=== PATIENT | female | born 1945 | race Caucasian/White ===

== ENCOUNTER 2016-10-22 13:22 | Outpatient (CLI) | payer OTHER, BC ==
[~2016-10-22 13:22] MED LIST: ACETAMINOPHEN325 MG PO; ASPIRIN ADULT L81 M1 PO; CYMBALTA60 MG PO; GLIPIZIDE XL5 M1 PO; LISINOPRIL10 MG PO; LOVASTATIN20 MG PO; METHYLPHENIDATE20 M5 PO; MIRAPEX0.25 MG PO; OMEPRAZOLE20 M1 PO; RITALIN20 MG PO
--- NOTE | 2016-10-22 15:16 | DIAGNOSTIC IMAGING REPORT ---
PROCEDURE: US COMPLETE PELVIC W/TRANSVAG INDICATION: PELVIC PAIN TECHNIQUE: Transabdominal and endovaginal whitley scale and color Doppler sonographic images of the female pelvis were obtained. COMPARISON: None. FINDINGS: TRANSABDOMINAL SCANS: The uterus is surgically absent Kidneys are normal. TRANSVAGINAL SCANS: Uterus and ovaries are surgically absent. No mass, no lesions, no fluid collection seen. IMPRESSION: 1. Negative pelvic ultrasound.
== END 2016-10-22 23:00 ==
LOC: US SRH 13:22
DX: R10.9 Unspecified abdominal pain (principal)